=== PATIENT | female | born 1950 | race Caucasian/White ===

== ENCOUNTER 2022-12-11 10:57 | Emergency (ER) | payer MEDICARE ==
[~2022-12-11] VITALS: Ht 165.1 cm; Wt 83.0 kg
[~2022-12-11 10:57] MED LIST: ALIROCUMAB IM; BAYER ASPIRIN325 MG PO; GABAPENTIN300 M2 PO; HUMALOG100 UNIT/M SC; LEVEMIR1000 UNITS IM; LOSARTAN POT25 MG PO; METFORMIN500 M2 PO; PAXIL40 MG PO; VICTOZA18 MG/3 ML SC
[2022-12-11 11:14] VITALS: BP 135/71
[2022-12-11 11:30] VITALS: BP 135/75
[2022-12-11 12:00] VITALS: BP 125/67
[2022-12-11 12:30] VITALS: BP 118/64
[2022-12-11] MEDS ORDERED: MOTRIN400 MG/TAB PO (12:50)
[2022-12-11 13:00] VITALS: BP 124/63
[2022-12-11 13:16] VITALS: BP 124/63
== END 2022-12-11 13:20 | disposition home or self-care (01) ==
LOC: ED 10:57
DX: M25.552 Pain in left hip (principal); I10 Essential (primary) hypertension; E11.9 Type 2 diabetes mellitus without complications; Z85.3 Personal history of malignant neoplasm of breast; Z79.84 Long term (current) use of oral hypoglycemic drugs; Z79.4 Long term (current) use of insulin